=== PATIENT | female | born 1955 | race Caucasian/White ===

== ENCOUNTER → 2024-07-12 10:15 | Outpatient (BNVA) | payer MEDICARE, MEDICAID, SELFPAY | PROVIDERS: PCP Emergency Medicine; Referring Provider Emergency Medicine; Visit Provider Internal Medicine | DX: E11.9 Type 2 diabetes mellitus without complications (principal); E07.9 Disorder of thyroid, unspecified | CPT/HCPCS: 36415; 80053; 80061; 81003; 81015; 82044; 83036; 84439; 84443 ==